=== PATIENT | female | born 1990 | race Caucasian/White ===

== ENCOUNTER 2023-07-08 07:03 | Outpatient (CLI) | payer OTHER ==
--- NOTE | 2023-07-08 10:41 | MRI Report ---
PROCEDURE: Lumbar Spine WO INDICATIONS: LAW BACK PAIN TECHNIQUE: Noncontrast sagittal T1 spin echo and T2 fast echo, sagittal STIR, axial T1 and T2 fast spin echo thr ough the lumbar spine. In cases with scoliosis, additional coronal T2 fast spin echo may be performe d. COMPARISON: None. FINDINGS: Image quality: Partially degraded by motion artifact. Alignment and Curvature: There is normal bony alignment. Bone Marrow: Marrow is of normal overall signal. No acute vertebral body compression fractures. Mi nimal reactive signal within the endplates adjacent to the L5-S1 intervertebral disc. Spinal Cord: Conus medullaris terminates at the L1-L2 disc space level. Visualized cord demonstrate s normal signal and size. Paraspinous Soft Tissues: No paravertebral masses. T12-L1: Normal in appearance. L1-L2: Normal in appearance. L2-L3: Normal in appearance. L3-L4: Normal in appearance. L4-L5: Normal in appearance. L5-S1: Mild disc height loss and desiccation. Mild diffuse disc bulge with superimposed small centr al protrusion/annular tear. No significant canal nor foraminal stenosis. IMPRESSION: 1. L5-S1 degenerative disc disease. 2. No significant canal, nor foraminal stenosis. Reviewed by: Donnie Ritter MD on 07/08/2023 10:39 AM PDT Approved by: Donnie Ritter MD on 07/08/2023 10:39 AM PDT Station ID: [id number]
== END 2023-07-08 07:04 | disposition home or self-care (01) ==
LOC: DI 07:03
PROVIDERS: ATTEND Nurse Practitioner Family
DX: M51.37 Other intervertebral disc degeneration, lumbosacral region (principal)

== ENCOUNTER 2023-09-30 07:16 | Outpatient (CLI) | payer OTHER ==
--- NOTE | 2023-09-30 14:46 | Ultrasound Report ---
PROCEDURE: Pelvic w/Transvaginal INDICATIONS: ENDOMETRIOSIS TECHNIQUE: Real-time scanning was performed of the pelvic organs, with image documentation. Additional endovagi nal scanning was necessary due to incomplete visualization of the adnexal and endometrial structures by transabdominal scanning. COMPARISON: None. FINDINGS: Uterus: Uterus is anteverted and normal in size at 6.2 x 2.6 x 4.4 cm. The myometrium is homogeneou s. The endometrium measures 4 mm in combined thickness. Ovaries: The right ovary measures 3.1 x 2.1 x 2.9 cm, with a calculated ovarian volume of 9.5 times cc. The left ovary measures 2.7 x 1.2 x 2.5 cm, with a calculated ovarian volume of 4.15 cc. The ov perez have a normal sonographic appearance. Less than 12 follicles can be seen in each ovary. No ad nexal masses are seen. There is a simple appearing right adnexal cyst measuring 3.0 x 1.6 x 2.2 cm. I n the left ovary, there is a hypoechoic focus measuring 1.2 x 1.2 x 0.7 cm. Other: No pathologic free abdominal or pelvic fluid. IMPRESSION: Normal sonographic appearance of the uterus and endometrium. Left ovarian hypoechoic area measuring up to 1.2 cm. Diagnostic considerations include hemorrhagic cy st versus endometrioma. Recommend follow-up pelvic ultrasound in 6-12 weeks. Reviewed by: Samantha Henry MD, PhD on 09/30/2023 2:45 PM PDT Approved by: Samantha Henry MD, PhD on 09/30/2023 2:45 PM PDT Station ID: [id number]
== END 2023-09-30 07:17 | disposition home or self-care (01) ==
LOC: DI 07:16
PROVIDERS: ATTEND Obstetrics & Gynecology
DX: N94.89 Other specified conditions associated with female genital organs and menstrual cycle (principal); N83.9 Noninflammatory disorder of ovary, fallopian tube and broad ligament, unspecified